=== PATIENT | female | born 1980 ===

== ENCOUNTER 2022-09-27 14:20 | Emergency (ER) | payer SELFPAY ==
[~2022-09-27] VITALS: Ht 162 cm; Wt 62.5 kg
--- NOTE | 2022-09-27 14:34 | ED Abdominal Pain ---
General Chief Complaint: Abdominal/GI Problems Stated Complaint: ABD PAIN; RT FLANK PAIN; FEVER Source of Information: Patient, Spouse History of Present Illness Date Seen by Provider: Sep 27, 2022 Time Seen by Provider: 14:28 Initial Comments 42-year-old female presents with complaints of bilateral flank pain worse on the right side for over 4 days. She had not taken anything at home for the pain. She also denied having symptoms like this previously. She denied nausea, vomiting, constipation, diarrhea, pain with urination. Says she felt like her pain was worse today they came to the emergency department. 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 She denies any trauma or injury to trigger her symptoms. Timing/Duration: 4-5 Days Severity/Quality: Sharp Location: Flank (Bilateral flank) Activities at Onset: None Modifying Factors: Worsens With Movement, Worsens With Palpation Associated Symptoms: Back Pain; No Chest Pain, No Diaphoresis, No Fever/Chills, No Fatigue, No Headache, No Heartburn, No Nausea/Vomiting, No Rash, No Shortness of Air, No Swelling/Mass in Abdomen, No Syncope, No Weakness Allergies and Home Medications Allergies Coded Allergies: No Known Drug Allergies (Unverified , 09/27/22) Patient Home Medication List Home Medication List Reviewed: Yes Nitrofurantoin Monohyd/M-Cryst (Macrobid 100 mg Capsule) 100 Mg Capsule, 1 TAB PO BID Prescribed by: ODESSA COLLIER on 09/27/22 8557 Review of Systems Review of Systems Constitutional: No chills, No fever EENTM: No Symptoms Reported Respiratory: No Symptoms Reported Cardiovascular: No Symptoms Reported Gastrointestinal: See HPI Genitourinary: No Symptoms Reported Musculoskeletal: see HPI Skin: No rash Psychiatric/Neurological: Denies Headache Past Drusjbc-Omilkw-Agcjwv Hx Patient Social History Tobacco Use?: No Use of E-Cig and/or Vaping dev: No Substance use?: No Alcohol Use?: No Past Medical History Surgery/Hospitalization HX: Denies Physical Exam Vital Signs Vital Signs - First Documented 09/27/22 14:33 Temp 37.1 Pulse 104 Resp 16 B/P (MAP) 112/74 (87) Pulse Ox 98 O2 Delivery Room Air Capillary Refill : Height/Weight/BMI Height: '" Weight: lbs. oz. kg; BMI Method: General Appearance: WD/WN, no apparent distress HEENT: PERRL/EOMI, pharynx normal Neck: non-tender, full range of motion, supple, normal inspection Respiratory: chest non-tender, lungs clear, normal breath sounds, no respiratory distress, no accessory muscle use Cardiovascular: normal peripheral pulses, regular rate, rhythm Gastrointestinal: normal bowel sounds, soft, no pulsatile mass; No distended, No guarding, No rebound; tenderness (Diffuse abdominal pain worse in the right flank no rebound or guarding.) Rectal: deferred Extremities: normal range of motion, non-tender, normal capillary refill Back: CVA tenderness (R), CVA tenderness (L) Neurologic/Psychiatric: 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 II-XII nml as tested, alert, oriented x 3 Skin: normal color, warm/dry Progress/Results/Core Measures Results/Orders Lab Results Laboratory Tests Test 09/27/22 14:30 09/27/22 15:46 Range/Units Urine Color YELLOW Urine Clarity CLOUDY Urine pH 6.0 5-9 Urine Specific [place] >=1.030 1.016-1.022 Urine Protein TRACE H NEGATIVE Urine Glucose (UA) NEGATIVE NEGATIVE Urine Ketones 2+ H NEGATIVE Urine Nitrite NEGATIVE NEGATIVE Urine Bilirubin NEGATIVE NEGATIVE Urine Urobilinogen 0.2 < = 1.0 MG/DL Urine Leukocyte Esterase 2+ H NEGATIVE Urine RBC (Auto) TRACE-I H NEGATIVE Urine RBC NONE /HPF Urine WBC 10-25 H /HPF Urine Squamous Epithelial Cells 0-2 /HPF Urine Crystals NONE /LPF Urine Bacteria FEW H /HPF Urine Casts NONE /LPF Urine Mucus MODERATE H /LPF Urine Culture Indicated YES Urine Opiates Screen NEGATIVE NEGATIVE Urine Oxycodone Screen NEGATIVE NEGATIVE Urine Methadone Screen NEGATIVE NEGATIVE Urine Propoxyphene Screen NEGATIVE NEGATIVE Urine Barbiturates Screen NEGATIVE NEGATIVE Ur Tricyclic Antidepressants Screen NEGATIVE NEGATIVE Urine Phencyclidine Screen NEGATIVE NEGATIVE Urine Amphetamines Screen NEGATIVE NEGATIVE Urine Methamphetamines Screen NEGATIVE NEGATIVE Urine Benzodiazepines Screen POSITIVE H NEGATIVE Urine Cocaine Screen NEGATIVE NEGATIVE Urine Cannabinoids Screen NEGATIVE NEGATIVE White Blood Count 2.9 L 4.3-11.0 10^3/uL Red Blood Count 4.62 3.80-5.11 10^6/uL Hemoglobin 13.3 11.5-16.0 g/dL Hematocrit 39 35-52 % Mean Corpuscular Volume 84 80-99 fL Mean Corpuscular Hemoglobin 29 25-34 pg Mean Corpuscular Hemoglobin Concent 34 32-36 g/dL Red Cell Distribution Width 13.2 10.0-14.5 % Platelet Count 127 L 130-400 10^3/uL Mean Platelet Volume 11.2 9.0-12.2 fL Immature Granulocyte % (Auto) 0 % Neutrophils (%) (Auto) 65 42-75 % Lymphocytes (%) (Auto) 19 12-44 % Monocytes (%) (Auto) 14 H 0-12 % Eosinophils (%) (Auto) 1 0-10 % Basophils (%) (Auto) 1 0-10 % Neutrophils # (Auto) 1.9 1.8-7.8 X 10^3 Lymphocytes # (Auto) 0.6 L 1.0-4.0 X 10^3 Monocytes # (Auto) 0.4 0.0-1.0 X 10^3 Eosinophils # (Auto) 0.0 0.0-0.3 10^3/uL Basophils # (Auto) 0.0 0.0-0.1 10^3/uL Immature Granulocyte # (Auto) 0.0 0.0-0.1 10^3/uL Percent Immature Platelet Fraction 8.9 H 0.0-7.6 % Sodium Level 135 135-145 MMOL/L Potassium Level 4.0 3.6-5.0 MMOL/L Chloride Level 100 98-107 MMOL/L Carbon Dioxide Level 22 21-32 MMOL/L Anion Gap 13 5-14 MMOL/L Blood Urea Nitrogen 7 7-18 MG/DL Creatinine 0.76 0.60-1.30 MG/DL Estimat Glomerular Filtration Rate 102 BUN/Creatinine Ratio 9 Glucose Level 84 70-105 MG/DL Calcium Level 9.0 8.5-10.1 MG/DL Corrected Calcium 9.0 8.5-10.1 MG/DL Total Bilirubin 0.4 0.1-1.0 MG/DL Aspartate Amino Transf (AST/SGOT) 44 H 5-34 U/L Alanine Aminotransferase (ALT/SGPT) 39 0-55 U/L Alkaline Phosphatase 58 40-136 U/L Total Protein 7.3 6.4-8.2 GM/DL Albumin 4.0 3.2-4.5 GM/DL Lipase 24 8-78 U/L My Orders Orders - ODESSA COLLIER MD Ua Culture If Indicated (09/27/22 14:29) Urine Bedside (09/27/22 14:29) Drug Screen Stat (Urine) (09/27/22 14:29) Urine Culture (09/27/22 14:30) Comprehensive Metabolic Panel (09/27/22 14:45) Lipase (09/27/22 14:45) Ed Iv/Invasive Line Start (09/27/22 14:45) Cbc With Automated Diff (09/27/22 14:45) Ct Abdomen/Pelvis Wo (09/27/22 14:45) Ns Iv 1000 Ml (Sodium Chloride 0.9%) (09/27/22 14:45) Ketorolac Injection (Toradol Injection) (09/27/22 14:45) Ceftriaxone 1 Gm Pre-Mix (Rocephin 1 Gm (09/27/22 16:23) Vital Signs/I&O 09/27/22 09/27/22 14:33 17:11 Temp 37.1 37.1 Pulse 104 98 Resp 16 16 B/P (MAP) 112/74 (87) 112/74 Pulse Ox 98 98 O2 Delivery Room Air Room Air Progress Progress Note #1: Progress Note Obtain urinalysis as well as urine and urine drug screen to evaluate for possible sources of her bilateral flank pain. IV access to check basic labs with CBC, chemistry. CT scan of the abdomen and pelvis to look for possible kidney stone versus colitis versus diverticulitis versus cholecystitis versus appendicitis. Give normal saline 1 L IV fluid bolus for hydration, Toradol 30 mg IV for pain. Progress Note #2: Progress Note CT scan does not demonstrate any acute process to account for her pain. Her CBC did not show acute abnormality. Her urine test was negative. Urinalysis was cloudy with bacteria and leukocyte Estrace to go along with infection. Her chemistry panel did not show acute significant abnormality. Patient reported improvement in her pain and symptoms with treatment here in the ED. Administer Rocephin 1 g IV for her UTI. There is no signs of pyelonephritis on her CT scan. Encouraged to push fluids and rest at home and establish care with a local doctor. Continue with antibiotics by mouth at home. Advised she could use ibuprofen or Tylenol if needed for pain. Diagnostic Imaging Diagonstic Imaging: CT Plain Films/CT/US/NM/MRI: abdomen, pelvis Comments [facility]. [place], [place] NAME: ANTONETTE KAPLAN [facility] REC#: [id number] PT STATUS: DEP ER : 1980 PHYSICIAN: ODESSA COLLIER MD ADMIT DATE: 09/27/22/ER FS Signed Date of Exam:09/27/22 CT ABDOMEN/PELVIS WO PROCEDURE: CT abdomen and pelvis without contrast. TECHNIQUE: Multiple contiguous axial images were obtained through the abdomen and pelvis without the use of intravenous contrast. Auto Exposure Controls were utilized during the CT exam to meet ALARA standards for radiation dose reduction. INDICATION: Right flank pain. COMPARISON: No priors. FINDINGS: The lung bases are clear. Liver, gallbladder, bile ducts, spleen, adrenals, and pancreas are unremarkable. The aorta is nonaneurysmal. There are no opaque kidney stones. There is no hydroureteronephrosis. There is no small or large bowel obstruction. The uterus, adnexa, and urinary bladder appeared unremarkable. There is no diverticulitis. Structure believed to be the normal appendix visualized. No findings of appendicitis. No ascites, abscess, hematoma, or acute fluid collection. IMPRESSION: No obstructive features, inflammatory processes, or acute appearing abnormalities. Dictated by: Dictated on workstation # [id number] Dict: 09/27/22 1504 Trans: 09/27/221711 [id number] Interpreted by: LUCILLE MONROY Electronically signed by: LUCILLE MONROY 09/27/221711 Reviewed: Reviewed by Mn Departure Impression Primary Impression: Acute cystitis without hematuria Additional Impression: Flank pain, acute Disposition: 01 HOME, SELF-CARE Condition: Improved Departure-Patient Inst. Decision time for Depature: 17:07 Referrals: [facility] [place] Instructions: Flank Pain ED, Urinary Tract Infection, Adult ED Add. Discharge Instructions: Drink more water and stay well hydrated Take the entire course of antibiotics as prescribed. Consider establishing care with [facility] by calling [phone]. They could get you with a primary care provider that could help take care of you when you get sick or have concerns like today. All discharge instructions reviewed with patient and/or family. Voiced unde rstanding. Scripts Nitrofurantoin Monohyd/M-Cryst (Macrobid 100 mg Capsule) 100 Mg Capsule 1 TAB PO BID for UTI for 7 Days, #14 CAP 0 Refills Prov: ODESSA COLLIER MD 09/27/22 ODESSA COLLIER MD Sep 27, 2022 14:34
[2022-09-27 14:37] LABS: BILIRUBIN,URINE NEGATIVE (NEGATIVE); CLARITY,URINE CLOUDY; COLOR,URINE YELLOW; GLUCOSE, URINE (UA) NEGATIVE (NEGATIVE); KETONES,URINE 2+ (NEGATIVE); LEUKOCYTE ESTERASE ,URINE 2+ (NEGATIVE); NITRITE,URINE NEGATIVE (NEGATIVE); PROTEIN,URINE TRACE (NEGATIVE)
[2022-09-27 14:43] LABS: BACTERIA,URINE FEW /HPF; SQUAMOUS EPITHELIAL CELL,UR 0-2 /HPF
[2022-09-27] MEDS ORDERED: KETOROLAC 30 MG/ML VIAL IVP STA (14:45)
[2022-09-27] MEDS ORDERED: NS IV 1000 ML 1,000 ML IV STA (14:45)
[2022-09-27 14:47] LABS: AMPHETAMINE SCREEN, URINE NEGATIVE (NEGATIVE); BARBITURATE SCREEN URINE NEGATIVE (NEGATIVE); BENZODIAZEPINES SCREEN URINE POSITIVE (NEGATIVE); CANNABINOID SCREEN, URINE NEGATIVE (NEGATIVE); COCAINE SCREEN URINE NEGATIVE (NEGATIVE); METHADONE STAT NEGATIVE (NEGATIVE); OPIATE SCREEN URINE NEGATIVE (NEGATIVE); OXYCODONE STAT NEGATIVE (NEGATIVE); PROPOXYPHENE STAT NEGATIVE (NEGATIVE); TRICYCLIC ANTIDEPRESSANTS SCRE NEGATIVE (NEGATIVE)
--- NOTE | 2022-09-27 15:25 | Diagnostic Imaging Report ---
PROCEDURE: CT abdomen and pelvis without contrast. TECHNIQUE: Multiple contiguous axial images were obtained through the abdomen and pelvis without the use of intravenous contrast. Auto Exposure Controls were utilized during the CT exam to meet ALARA standards for radiation dose reduction. INDICATION: Right flank pain. COMPARISON: No priors. FINDINGS: The lung bases are clear. Liver, gallbladder, bile ducts, spleen, adrenals, and pancreas are unremarkable. The aorta is nonaneurysmal. There are no opaque kidney stones. There is no hydroureteronephrosis. There is no small or large bowel obstruction. The uterus, adnexa, and urinary bladder appeared unremarkable. There is no diverticulitis. Structure believed to be the normal appendix visualized. No findings of appendicitis. No ascites, abscess, hematoma, or acute fluid collection. IMPRESSION: No obstructive features, inflammatory processes, or acute appearing abnormalities. Dictated by: Dictated on workstation # [id number]
[2022-09-27 16:04] LABS: BASOPHILS % (AUTO) 1 % (0-10); EOSINOPHILS % (AUTO) 1 % (0-10); HEMATOCRIT 39 % (35-52); HEMOGLOBIN 13.3 g/dL (11.5-16.0); LYMPHOCYTES % (AUTO) 19 % (12-44); MEAN CORPUSCULAR HEMOGLOBIN 29 pg (25-34); MEAN CORPUSCULAR HGB CONC 34 g/dL (32-36); MEAN CORPUSCULAR VOLUME 84 fL (80-99); MEAN PLATELET VOLUME 11.2 fL (9.0-12.2); MONOCYTES % (AUTO) 14 % (0-12); NEUTROPHILS % (AUTO) 65 % (42-75); PLATELET COUNT 127 10^3/uL (130-400); WHITE BLOOD COUNT 2.9 10^3/uL (4.3-11.0)
[2022-09-27 16:05] LABS: LYMPHOCYTES # (AUTO) 0.6 X 10^3 (1.0-4.0); MONOCYTES # (AUTO) 0.4 X 10^3 (0.0-1.0); NEUTROPHILS # (AUTO) 1.9 X 10^3 (1.8-7.8)
[2022-09-27 16:07] LABS: BILIRUBIN,TOTAL 0.4 MG/DL (0.1-1.0); CREATININE SERUM 0.76 MG/DL (0.60-1.30); TOTAL PROTEIN 7.3 GM/DL (6.4-8.2)
[2022-09-27] MEDS ORDERED: cefTRIAXone 1 GM PRE-MIX 50 ML IV STA (16:23)
[2022-09-27] MEDS ORDERED: NITR-65 PO (17:09)
[2022-09-27 17:11] VITALS: BP 112/74
== END 2022-09-27 17:10 | disposition home or self-care (01) ==
LOC: ER FS 14:23
DX: N30.00 Acute cystitis without hematuria (principal); Z32.02 Encounter for pregnancy test, result negative
CPT/HCPCS: 36415; 74176; 80053; 80306; 81000; 83690; 84703; 85025; 87088